=== PATIENT | male | born 1960 | race Caucasian/White ===

== ENCOUNTER 2022-05-12 17:46 | Emergency (ER) | payer OTHER ==
[~2022-05-12] VITALS: Ht 154.9 cm; Wt 77.1 kg
[2022-05-12] MEDS ORDERED: ONDANSETRON 4MG INJ IVP ONE ×2 (18:00→22:00)
[2022-05-12] MEDS ORDERED: 0.9%NACL 1000ML 1,000 ML IV ONE ×3 (18:00→20:00)
[2022-05-12 18:31] LABS: BASOPHILS % (AUTO) 0.4 % (0.0-5.0); EOSINOPHILS % (AUTO) 0.2 % (0.0-8.0); HEMATOCRIT 44.1 % (42-54); LYMPHOCYTES % (AUTO) 9.3 % (21.0-51.0); MEAN CORPUSCULAR HEMOGLOBIN 29.1 pg (27.0-33.0); MEAN CORPUSCULAR VOLUME 85.5 fL (79-99); MONOCYTES % (AUTO) 2.9 % (3.0-13.0); NEUTROPHILS % (AUTO) 86.6 % (40.0-77.0); PLATELET COUNT (AUTO) 499 K/uL (130-400); RED BLOOD CELL COUNT(AUTO) 5.16 MIL/uL (4.50-6.20); RED CELL DISTRIBUTION WIDTH 13.7 % (11.0-15.5)
[2022-05-12 18:40] LABS: CREATININE 2.1 mg/dL (0.5-1.5); POTASSIUM 5.2 mmol/L (3.5-5.1)
[2022-05-12 18:45] LABS: TOTAL PROTEIN, SERUM 8.9 g/dL (6.0-8.3)
[2022-05-12 20:53] LABS: APPEARANCE,URINE CLEAR (CLEAR); BILIRUBIN,URINE NEGATIVE (NEGATIVE); COLOR,URINE LIGHT-YELLOW (YELLOW); GLUCOSE, URINE (UA) 500 mg/dL (NEGATIVE); KETONES,URINE 10 mg/dL (NEGATIVE); LEUKOCYTE ESTERASE ,URINE NEGATIVE Leu/uL (NEGATIVE); NITRATE,URINE NEGATIVE (NEGATIVE); OCCULT BLOOD,URINE NEGATIVE (NEGATIVE); PH,URINE 5.5 (5.0-8.0); PROTEIN,URINE 30 mg/dL (NEGATIVE); UROBILINOGEN,URINE 0.2 mg/dL (0.2-1.0)
[2022-05-12 20:58] LABS: BACTERIA,URINE RARE /HPF (None Seen); MUCUS,URINE RARE LPF (None Seen); OTHER CASTS, URINE 1 /LPF (None Seen); RBC,URINE 0-1 /HPF (0-1); SQUAMOUS EPITHELIAL CELL,UR RARE /HPF (0-2)
[2022-05-12 21:23] LABS: CREATININE 1.6 mg/dL (0.5-1.5); POTASSIUM 5.2 mmol/L (3.5-5.1)
[2022-05-12 21:35] VITALS: BP 160/75
== END 2022-05-12 22:00 | disposition home or self-care (01) ==
LOC: EDH 17:46 → EDSEX 17:46 → EDH 22:00
DX: T67.5XXA Heat exhaustion, unspecified, initial encounter (principal); E86.0 Dehydration; E78.00 Pure hypercholesterolemia, unspecified; E11.9 Type 2 diabetes mellitus without complications; I10 Essential (primary) hypertension; Z95.1 Presence of aortocoronary bypass graft; X58.XXXA Exposure to other specified factors, initial encounter; Y93.89 Activity, other specified; Y92.89 Other specified places as the place of occurrence of the external cause; Y99.8 Other external cause status
CPT/HCPCS: 99285; 96374; 71045; 96361; 82550; 83735; 84484; 80053; 85025; 81001; 36415; 96376; 93005; 80048; J7030; J2405 ×2

== ENCOUNTER 2022-06-19 13:08 | Emergency (ER) | payer MEDICARE, OTHER ==
[~2022-06-19] VITALS: Ht 175.3 cm; Wt 77.1 kg
[2022-06-19] MEDS ORDERED: HYDROCODONE/ACETAMINOPHEN 5/325 MG TAB PO ONE (13:30)
[2022-06-19] MEDS ORDERED: NAPR-1180 PO (14:15)
[2022-06-19 14:23] VITALS: BP 129/74
== END 2022-06-19 14:26 | disposition home or self-care (01) ==
LOC: EDH 13:08
DX: S50.01XA Contusion of right elbow, initial encounter (principal); M19.021 Primary osteoarthritis, right elbow; E78.00 Pure hypercholesterolemia, unspecified; I10 Essential (primary) hypertension; Z79.1 Long term (current) use of non-steroidal anti-inflammatories (NSAID); V86.59XA Driver of other special all-terrain or other off-road motor vehicle injured in nontraffic accident, initial encounter; Y93.89 Activity, other specified; Y92.89 Other specified places as the place of occurrence of the external cause; Y99.8 Other external cause status
CPT/HCPCS: 73080

== ENCOUNTER → 2025-06-16 | Outpatient (CLI) | payer MEDICARE ==
[~2025-06-16] MED LIST: NAPR-1180 PO
--- NOTE | 2025-06-17 06:00 | HMCIMG ---
EXAM: ULTRASOUND OF THE ABDOMINAL AORTA, LIMITED Technique: Real-time grayscale ultrasound of the abdominal aorta was performed with account services representative static images archived. Evaluation is limited by overlying bowel gas obscuring portions of the mid abdominal aorta and the bilateral common iliac arteries. Clinical Information: History of nicotine dependence. Insurance documentation. Findings: Proximal abdominal aorta measures approximately 2.1 ??? 2.1 ??? 1.9 centimeters in orthogonal dimensions. Mid abdominal aorta is obscured by bowel gas and not adequately visualized. Distal abdominal aorta above the bifurcation measures approximately 1.8 ??? 1.7 ??? 1.7 centimeters. Bilateral common iliac arteries are obscured by bowel gas and not adequately visualized. No focal saccular outpouching or mural thrombus is identified within the visualized aortic segments. No periaortic fluid collection is identified within the limits of this examination. Impression: * Visualized proximal and distal abdominal aorta are normal in caliber, with maximal diameters up to approximately 2.1 centimeters; no aneurysm is identified in the visualized segments. * Limited examination due to bowel gas with nonvisualization of the mid abdominal aorta and the bilateral common iliac arteries; aneurysm or other pathology in these obscured segments cannot be excluded. /[place]
== END | disposition home or self-care (01) ==
LOC: RAH 07:07
PROVIDERS: ATTEND Nurse Practitioner Family
DX: Z87.891 Personal history of nicotine dependence (principal)
CPT/HCPCS: 76775